=== PATIENT | male | born 1960 | race Caucasian/White ===

== ENCOUNTER 2018-03-27 21:09 | Emergency (ER) | payer OTHER ==
[2018-03-27] MEDS ORDERED: MULT1CAP59 PO (21:17)
--- NOTE | 2018-03-27 21:41 | ER Report ---
History and Physical Time Seen By MD: 21:21 Hx. of Stated Complaint: Laceration to left ring finger from trying to install an oven HPI/ROS CHIEF COMPLAINT: finger laceration HISTORY OF PRESENT ILLNESS: This is a 58 year old male. He was working on installing a stove, and his left 4th finger got caught between the oven and wall. Crush injury with laceration at the finger tip that extends from one side of the nail, underneath the nail and to the other side of the finger. Bleeding controlled with pressure. Significant pain. Has some tingling in the finger tip now. Normal movement, but with pain. Installing a stove at home, not work/job related. Last tetanus about 9 years ago. Allergies: Coded Allergies: No Known Drug Allergies (Unverified , 03/27/18) Home Meds Active Scripts Cephalexin Monohydrate (CEPHALEXIN) 500 Mg Cap, 500 MG PO Q6H, #20 CAP 0 Refills Prov:CINDY DAWKINS MD 03/27/18 Reported Medications Multivitamin (MULTIVITAMINS) 1 Each Capsule, 1 EACH PO DAILY, CAPSULE 03/27/18 Reviewed Nurses Notes: Yes Constitutional Vital Sign - Last 24 Hours 03/27/18 03/27/18 03/27/18 03/27/18 21:13 21:15 21:30 21:45 Temp 99.0 Pulse 99 100 89 Resp 18 B/P (MAP) 173/113 163/107 (125) 172/101 (124) Pulse Ox 93 93 93 O2 Delivery Room Air 03/27/18 03/27/18 03/27/18 03/27/18 22:00 22:15 22:30 22:45 B/P (MAP) 152/103 (119) 130/71 (90) 142/92 (109) 145/83 (103) 03/27/18 23:00 B/P (MAP) 154/97 (116) Physical Exam General: Alert, no acute distress Skin: fingertip laceration left 4th finger. Extends across the tip below the nail and to either side. About 2 cm in length overall. Musculoskeletal: Normal motor function, normal strength. Neuro: Tingling of the finger tip. Cardiovascular: Bleeding. Normal cap refill. Medical Decision Making ED Course/Re-evaluation ED Course Procedure: Laceration Repair Verbal consent from patient after discussing repair options, risks and benefits. Wound cleaned extensively with Hibiclens and saline. Anesthesia: Digital block using 1% lidocaine without epinephrine and 0.5% bupivacaine without epinephrine. Location: Left fourth finger at the tip of the distal phalanx as noted. Length: Approximate 2 cm. Character: As above. There were no deep structures involved. No tendon injury was identified. Wound repair: 4 interrupted 5-0 Prolene sutures. The wound repair was simple and performed by myself and my medical student. Wound care instructions discussed. Sutures need to be removed in 7 days. Tetanus booster given. Cephalexin 500mg four times a day for 5 days. Decision to Disposition Date: March 27, 2018 Decision to Disposition Time: 22:53 Depart Departure Latest Vital Signs Vital Signs Date Time Temp Pulse Resp B/P (MAP) Pulse Ox O2 Delivery O2 Flow Rate FiO2 03/27/18 23:00 154/97 (116) 03/27/18 21:45 89 93 03/27/18 21:13 99.0 18 Room Air Impression: Primary Impression: Laceration of finger of left hand with damage to nail Condition: Improved Disposition: HOME OR SELF-CARE New Scripts Cephalexin Monohydrate (CEPHALEXIN) 500 Mg Cap 500 MG PO Q6H, #20 CAP 0 Refills Prov: CINDY DAWKINS MD 03/27/18 Patient Instructions: Finger Laceration (ED) Additional Instructions: Wound Care: Wash the wound once a day with soap and water. Dry the wound and apply a small amount of antibiotic ointment with a clean dressing. If the dressing becomes wet or dirty, repeat cleaning and dressing as above. No soaking the wound; no swimming. Stitches need to be removed in 5-7 days. Pain Control: Use Tylenol or ibuprofen for pain. Using and ice pack can help reduce swelling. Antibiotic: Cephalexin 500mg 4 times a day for 5 days. Problem Qualifiers Primary Impression: Laceration of finger of left hand with damage to nail Encounter type: initial encounter Finger: ring finger Foreign body presence : without foreign body Qualified Codes: S61.315A - Laceration without foreign body of left ring finger with damage to nail, initial encounter CINDY DAWKINS MD March 27, 2018 21:41
--- NOTE | 2018-03-27 22:25 | RADIOLOGY IMAGING REPORT ---
FACILITY: [facility] - [place] PATIENT NAME: Sher Whitney : 1960 MR: [id number] V: [id number] EXAM DATE: ORDERING PHYSICIAN: CINDY DAWKINS TECHNOLOGIST: Location: [facility] Patient: Sher Whitney : 1960 Visit/Account:[id number] Date of Sevice: 03/27/2018 EXAMINATION: Three views of the left fourth finger. HISTORY: Crush injury, laceration, distal phalanx COMPARISON: None. FINDINGS: Bones of the left fourth finger demonstrate normal alignment. No evidence of fracture or dislocation . Joint spaces are preserved. Soft tissue swelling and laceration along the distal tip of the fourth finger. No radiopaque foreign body. IMPRESSION: 1. Soft tissue swelling and laceration along the distal aspect of the left fourth finger. 2. No underlying fracture or radiopaque foreign body. Report Dictated By: Shiv Francisco MD at 03/27/2018 10:16 PM Report E-Signed By: Shiv Francisco MD at 03/27/2018 10:19 PM WSN:[id number]
[2018-03-27] MEDS ORDERED: CEPH500C24 PO (22:54)
[2018-03-27] MEDS ORDERED: DIPHTH/TETANUS/ACEL. PERTUSSIS IM ONLY ONE (22:55)
[2018-03-27 23:00] VITALS: BP 154/97
== END 2018-03-27 23:07 | disposition home or self-care (01) ==
LOC: ER 21:40
DX: S61.315A Laceration without foreign body of left ring finger with damage to nail, initial encounter (principal); W45.8XXA Other foreign body or object entering through skin, initial encounter
CPT/HCPCS: 90471; 90715; 99283

== ENCOUNTER → 2018-10-02 | Outpatient (CLI) | payer OTHER ==
[~2018-10-02] MED LIST: CEPH500C24 PO; MULT1CAP59 PO
--- NOTE | 2018-10-04 09:57 | RADIOLOGY IMAGING REPORT ---
FACILITY: [facility] PATIENT NAME: LAURENT AGUIRRE : [id number] MR: [id number] V: [id number] EXAM DATE: ORDERING PHYSICIAN: MARI CAANS TECHNOLOGIST: Krysten Fry RDMS PROCEDURE:US RIGHT BREAST COMPARISON:None. INDICATIONS:RIGHT BREAST MASS FINDINGS: In the 12 o'clock position of the Right breast just above the nipple there is a 1.6 x 1.4 x 0.8cm solid hypoechoic mass with slightly lobular margins. This is in the location of patient's palpable findings. Today's mammogram revealed slightly increased Right retroareolar breast tissue. Ultrasound guided core biopsy of this Right breast is recommended for further evaluation. DIAGNOSTIC CATEGORY 4--SUSPICIOUS FOR MALIGNANCY. RECOMMENDATIONS: ULTRASOUND-GUIDED CORE BIOPSY: RIGHT BREAST. IMPRESSION: BIRADS 4: Suspicious for malignancy. Ultrasound guided core biopsy of the solid hypoechoic mass in the 12 o'clock position of the Right breast just above the nipple recommended for further evaluation. Dictated by: Aminah Vanegas M.D. on 10/02/2018 at 16:48 Transcribed by: ARNIE on 10/04/2018 at 8:32 Approved by: Aminah Vanegas M.D. on 10/04/2018 at 9:56 [facility]
--- NOTE | 2018-10-04 09:57 | RADIOLOGY IMAGING REPORT ---
FACILITY: [facility] - [place] PATIENT NAME: LAURENT AGUIRRE : [id number] MR: [id number] V: [id number] EXAM DATE: ORDERING PHYSICIAN: MARI CANAS TECHNOLOGIST: Zhanna Bhakta PROCEDURE:BILATERAL DIAGNOSTIC DIGITAL MAMMOGRAM WITH CAD ASSISTED INTERPRETATION & 3D TOMOSYNTHESIS ON THE RIGHT MLO VIEW COMPARISON:None. INDICATIONS:RIGHT BREAST MASS FINDINGS: There is predominant fatty replacement throughout the breasts. There is slightly increased irregular tissue in the Right retroareolar region relative to the Left. Today's Right breast Ultrasound demonstrated a solid hypoechoic mass in the 12 o'clock position of the Right breast just above the nipple. Ultrasound guided core biopsy of this mass is recommended for further evaluation. DIAGNOSTIC CATEGORY 4--SUSPICIOUS FOR MALIGNANCY. RECOMMENDATIONS: ULTRASOUND-GUIDED CORE BIOPSY: RIGHT BREAST. IMPRESSION: BIRADS 4: Suspicious for malignancy. Ultrasound guided core biopsy of the solid hypoechoic mass 12 o'clock position Right breast just above the nipple recommended for further evaluation. Dictated by: Aminah Vanegas M.D. on 10/02/2018 at 16:51 Transcribed by: ARNIE on 10/04/2018 at 8:29 Approved by: Aminah Vanegas M.D. on 10/04/2018 at 9:56 [facility]
== END ==
LOC: US 00:31
PROVIDERS: ATTEND Nurse Practitioner Family
DX: R92.8 Other abnormal and inconclusive findings on diagnostic imaging of breast (principal)
CPT/HCPCS: 77062; 77066

== ENCOUNTER → 2018-10-15 | Outpatient (CLI) | payer OTHER ==
--- NOTE | 2018-10-15 17:02 | RADIOLOGY IMAGING REPORT ---
FACILITY: [facility] PATIENT NAME: Sher Whitney : 1960 MR: [id number] V: [id number] EXAM DATE: ORDERING PHYSICIAN: [facility] TECHNOLOGIST: Location: [facility] Patient: Sher Whitney : 1960 Visit/Account:[id number] Date of Sevice: 10/15/2018 Exam type: CHEST PA AND LAT History: Cough, smoking history Comparison: None. Findings: Mild linear stranding in the left lung base may represent scarring versus atelectasis. There is no e vidence of focal infiltrates, pleural effusions or pulmonary edema. The left hilum appears slightly prominent Cardiac silhouette is normal in size. The trachea is midline. There are old left-sided ri b fractures and mild spondylotic changes of the thoracic spine IMPRESSION: 1. Mild linear stranding left lung base may represent scarring versus atelectasis The left hilum appears slightly prominent. This could be a normal anatomic variant however if patien t's symptoms persist a CT of the chest is recommended given the smoking history Report Dictated By: Aminah Vanegas MD at 10/15/2018 4:57 PM Report E-Signed By: Aminah Vanegas MD at 10/15/2018 4:58 PM WSN:[email or web address]
== END ==
LOC: RAD 14:14
PROVIDERS: ATTEND Nurse Practitioner Family
DX: R91.8 Other nonspecific abnormal finding of lung field (principal)
CPT/HCPCS: 71046

== ENCOUNTER → 2018-10-24 | Outpatient (CLI) | payer OTHER ==
--- NOTE | 2018-10-28 10:43 | RADIOLOGY IMAGING REPORT ---
FACILITY: [facility] PATIENT NAME: LAURENT AGUIRRE : [id number] MR: [id number] V: [id number] EXAM DATE: [id number] ORDERING PHYSICIAN: KAYLEE PITTMAN TECHNOLOGIST: Deshaun Arauz RDMS, [place] PROCEDURE: BIOPSY RIGHT BREAST COMPARISON: Prior mammogram 10/02/18 & Right breast Ultrasound 10/02/18. INDICATIONS: RT BREAST MASS FINDINGS: Informed consent was obtained. The Right breast was prepped and draped in the usual sterile fashion. Local anesthesia was accomplished with 1% lidocaine. Under sonographic guidance a 14 Gauge core biopsy was obtained through the mass just above the Right nipple. Amorphous irvin colored material was removed from the biopsy needle. An 18 Gauge needle was then advanced into the mass although attempts at aspirating the thick material were unsuccessful. 2 Additional 12 Gauge core biopsies were obtained through the mass. The material was sent to the Laboratory for evaluation. A biopsy clip was placed in the biopsy site. IMPRESSION: Successful sonographically guided Right breast core biopsy. Dictated by: Aminah Vanegas M.D. on 10/25/2018 at 9:26 Transcribed by: GARRET on 10/25/2018 at 10:28 Approved by: Aminah Vanegas M.D. on 10/28/2018 at 10:42 [facility]
== END ==
LOC: US 01:08
PROVIDERS: ATTEND Surgery
DX: N63.10 Unspecified lump in the right breast, unspecified quadrant (principal)
CPT/HCPCS: 19083; 88305

== ENCOUNTER 2018-11-11 00:46 | Day surgery (SDC) | payer OTHER ==
[~2018-11-11] VITALS: Ht 167.6 cm; Wt 64.9 kg
[~2018-11-11 00:46] MED LIST changes: +CHOL100052 PO; +MULT1TAB64 PO
[2018-11-11] MEDS ORDERED: fentaNYL CITR 100 MCG/2 ML AMP ONE ×2 (08:21→11:04)
[2018-11-11] MEDS ORDERED: PROPOFOL EMUL(*) 10MG/ML 20 ML 20 ML ONE (08:23)
[2018-11-11] MEDS ORDERED: DEXAMETHASONE SOD PHOS 10MG/ML ONE (08:23)
[2018-11-11] MEDS ORDERED: LIDOCAINE MPF 1% 5 ML VIAL ONE (08:23)
[2018-11-11] MEDS ORDERED: ONDANSETRON 4 MG/2 ML VIAL ONE (08:23)
[2018-11-11] MEDS ORDERED: FAMOTIDINE 20 MG TAB PO ONE (09:20)
[2018-11-11] MEDS ORDERED: NORMOSOL R SOLN(*) 1000 ML BAG 1,000 ML IV PRN (09:20)
[2018-11-11] MEDS ORDERED: LIDOCAINE/SOD BICARB 8.4% SYR ID ONE (09:20)
[2018-11-11] MEDS ORDERED: ceFAZolin(*) 2GM/D5W 50ML 50 ML IVPB ONE (09:20)
[2018-11-11] MEDS ORDERED: MIDAZOLAM 2 MG/2 ML VIAL IVP PRN (09:20)
[2018-11-11] MEDS ORDERED: ROPIVACAINE 0.5% 20 ML VIAL ONE (09:29)
[2018-11-11] MEDS ORDERED: LIDOCAINE 2% JELLY 5 ML TUBE ONE (09:42)
[2018-11-11] MEDS ORDERED: FAMOTIDINE(*) 20MG/50ML PREMIX 50 ML IVPB ONE (09:45)
[2018-11-11 10:04] VITALS: BP 167/111
[2018-11-11] MEDS ORDERED: DOCU-416 PO (10:45)
[2018-11-11] MEDS ORDERED: OXYC-854 PO (10:45)
--- NOTE | 2018-11-11 10:50 | Short(Outpt) Discharge Summary ---
Discharge Summary Reason for Hosp/Final Diag: (1) Mass of right breast Status: Chronic Hospital Course & Plan: Right breast lumpectomy completed without problems. Departure Discharge to: Home, Self Care Discharge Instructions Home Meds Active Scripts Docusate Sodium (COLACE) 100 Mg Capsule, 1 CAP PO BID, #30 CAP 0 Refills TAKE WITH A FULL GLASS OF WATER Prov:KAYLEE PITTMAN MD 11/11/18 Oxycodone Hcl/Acet 5/325 Mg (ENDOCET 5-325 TABLET) 1 Each Tablet, 1 TAB PO Q4H PRN for PAIN, #20 TAB 0 Refills Prov:KAYLEE PITTMAN MD 11/11/18 Reported Medications Cholecalciferol (Vitamin D3) (VITAMIN D) 1,000 Unit Tablet, 1000 UNIT PO DAILY 11/01/18 Multivitamin (MULTI VITAMIN DAILY) 1 Each Tablet, 1 EACH PO QDAY, TAB 11/01/18 Follow up Referrals: General Surgery - 11/25/18 @ Surgery, General with KAYLEE PITTMAN MD You have a follow up appointment scheduled with Dr. Pittman on 11/25/18, at 11:00am. Diet: Regular Activity: As Tolerated Special Instructions: You may remove the white surgical dressing on 11/13/18, then you can shower. After showering, leave the incision open to air but leave the steristrips in place until they fall off on their own. Do not immerse the incision for 2 weeks. KAYLEE PITTMAN MD Nov 11, 2018 10:50
--- NOTE | 2018-11-11 10:57 | Post Operative Progress Note ---
Post Operative Progress Note Date: Nov 11, 2018 Time: 10:51 Surgeon: Kavitha Dictation number: [id number] Anesthesia: LMA by Dr. Hester Pre-Op Diagnosis: Right breast lump Post-Op Diagnosis: CHRISTINA Findings: C/W dx Procedure(s): Right breast lumpectomy Specimen Removed:(May be N/A): Right breast lump Complications: None Fluids: See anesthesia record Estimated Blood Loss: Minimal Date OP Note Dictated: Nov 11, 2018 Time OP Note Dictated: 10:52 KAYLEE PITTMAN MD Nov 11, 2018 10:57
[2018-11-11 11:30] VITALS: BP 147/98
[2018-11-11 11:42] VITALS: BP 151/109
[2018-11-11 11:44] VITALS: BP 151/100
[2018-11-11 11:48] VITALS: BP 159/103
--- NOTE | 2018-11-11 12:14 | OPERATIVE REPORT 1 ---
EVENT DATE: November 11, 2018 SURGEON: Tarik Plummer M.D. ANESTHESIOLOGIST: Mk Hester MD ANESTHESIA: LMA. CATTLE SPRAYER: [*] PREOPERATIVE DIAGNOSIS Right breast lump. POSTOPERATIVE DIAGNOSIS Right breast lump. PROCEDURE PERFORMED Right breast lumpectomy. COMPLICATIONS None. CONDITION Stable. ESTIMATED BLOOD LOSS Minimal. INDICATIONS This is a 58-year-old gentleman who presented to my office with a lump right at the areolar margin in the upper inner quadrant of his right breast. Imaging was obtained including an ultrasound and mammogram and was suspicious for a malignancy. We performed an imaging-guided biopsy and it was suspicious for an abscess and when I saw him back he was requesting to have it removed so as to prevent future problems and also confirm the biopsy results. DESCRIPTION OF PROCEDURE The patient was brought into the operating room and placed supine on the operating room table. LMA anesthesia was administered and the right breast was prepped and draped in sterile fashion. Time-out was completed and I injected the areolar skin with 0.5% ropivacaine plain and made a curvilinear areolar incision in the upper inner quadrant and dissected through the dermis and into the subcutaneous fat. I dissected towards the nipple in the subareolar tissues and then I dissected superiorly and lateral all around the palpable mass. I then continued dissecting around it and removed the mass from the wound and passed it off the field to be sent to pathology. I then irrigated and dried the wound and made sure it was hemostatic and closed the skin with interrupted 3-0 deep dermal sutures and 4-0 Monocryl running subcuticular sutures. The skin was cleaned and dried and steri-strips were applied followed by sterile surgical dressings. The patient was then awakened and LMA removed. He was transported to the recovery room in stable condition, having tolerated the procedure without any apparent problems. JESIKA
== END 2018-11-11 11:30 | disposition home or self-care (01) ==
LOC: OR 00:46
PROVIDERS: ATTEND Surgery
DX: N62 Hypertrophy of breast (principal)
CPT/HCPCS: 19301; 88305; J1100; J2001; J2250; J2405; J2704; J2795; J3010; J3490; J0690